=== PATIENT | female | born 1950 | race African-American/Black ===

== ENCOUNTER 2017-11-24 13:30 | Outpatient (RCR) | payer OTHER | END 2017-12-07 | disposition home or self-care (01) | LOC: PTY 13:30 | PROVIDERS: ATTEND Internal Medicine | DX: M70.61 Trochanteric bursitis, right hip (principal) ==

== ENCOUNTER 2017-12-14 09:20 | Outpatient (RCR) | payer OTHER | END 2018-01-07 | disposition home or self-care (01) | LOC: PTY 09:20 | DX: M70.61 Trochanteric bursitis, right hip (principal) ==

== ENCOUNTER 2018-02-01 11:00 | Outpatient (RCR) | payer OTHER | END 2018-02-06 | disposition home or self-care (01) | LOC: PTY 11:00 | DX: M70.61 Trochanteric bursitis, right hip (principal) ==

== ENCOUNTER 2018-02-17 10:44 | Outpatient (RCR) | payer OTHER | END 2018-03-09 | disposition home or self-care (01) | LOC: PTY 10:44 | DX: M70.61 Trochanteric bursitis, right hip (principal) ==

== ENCOUNTER 2018-03-12 10:30 | Outpatient (RCR) | payer OTHER | END 2018-04-09 | disposition home or self-care (01) | LOC: PTY 10:30 | DX: M70.61 Trochanteric bursitis, right hip (principal) ==